=== PATIENT | female | born 1990 | race African-American/Black ===

== ENCOUNTER 2018-06-14 19:03 | Emergency (ER) | payer SELFPAY ==
[~2018-06-14] VITALS: Ht 170.2 cm; Wt 63.5 kg
[2018-06-14] MEDS ORDERED: ACETAMINOPHEN 325 MG TAB ONE (19:24)
[2018-06-14] MEDS ORDERED: ACETAMINOPHEN 325 MG TAB PO ONE (19:30)
[2018-06-14 19:56] LABS: CLARITY,URINE HAZY (CLEAR); COLOR,URINE YELLOW (YELLOW); LEUKOCYTE ESTERASE ,URINE NEGATIVE (NEGATIVE); NITRITE,URINE NEGATIVE (NEGATIVE)
[2018-06-14 19:57] LABS: BILIRUBIN,URINE 1+ (NEGATIVE); KETONES,URINE 2+ (NEGATIVE); PROTEIN,URINE DIPSTICK 2+ (NEGATIVE); URINE UROBILINOGEN 0.2 mg/dL (0.2 - 1)
[2018-06-14 19:58] LABS: PREGNANCY TEST, URINE NEGATIVE (NEGATIVE)
[2018-06-14 20:01] LABS: BACTERIA,URINE MODERATE /HPF; EPITHELIAL CELLS,URINE FEW /LPF; RBC,URINE 0-5 /HPF (0-5); WBC,URINE (MAN) 0-5 /HPF (0-5)
[2018-06-14 20:11] LABS: STREPTOCOCCUS GRP A ANTIGEN NEGATIVE (NEGATIVE)
--- NOTE | 2018-06-14 20:23 | Diagnostic Imaging Report ---
EXAMINATION: CHEST 2 VIEWS INDICATION: ^COUGH, FEVER SINCE FRIDAY, 104.0 F IN TRIAGE ^[id number] ^1956 ^Y COMPARISON: None FINDINGS: PA and lateral views TUBES and LINES: None. LUNGS: Lungs are well inflated. Mild bronchial wall thickening There is no evidence of pneumonia or pulmonary edema. PLEURA: No pleural effusion or pneumothorax. HEART AND MEDIASTINUM: The cardiomediastinal silhouette is unremarkable.. BONES AND SOFT TISSUES: Mild scoliosis of the midthoracic spine. Vertebral body heights are symmetric. No focal osseous lesions. Soft tissues are unremarkable. UPPER ABDOMEN: No free air under the diaphragm. IMPRESSION: Mild bronchial wall thickening suggestive of bronchitis. No infiltrates. Signed by: Dr. Sharad Cuellar MD on 06/14/2018 8:20 PM
[2018-06-14 20:36] LABS: INFLUENZAE A&B ANTIGEN (RAPID) NEGATIVE (NEGATIVE)
[2018-06-14 21:09] VITALS: BP 128/65
== END 2018-06-14 21:11 | disposition home or self-care (01) ==
LOC: ER 19:03
DX: R50.9 Fever, unspecified (principal); J20.9 Acute bronchitis, unspecified
CPT/HCPCS: 71046; 81001; 81025; 83518; 87070; 87400; 99283

== ENCOUNTER 2018-06-19 22:58 | Inpatient (IN) | payer SELFPAY ==
[~2018-06-19] VITALS: Ht 170.2 cm; Wt 75.9 kg
--- OUTSIDE RECORDS SUMMARY | 2018-06-19 23:02 | XMS REPORT ---
Author Author [facility] Address Unknown Phone Unavailable Care Team Providers Care Preparation Supervisor Freezing Name Role Phone Laurita MARLOW Unavailable Unavailable Problems This patient has no known problems. Allergies, Adverse Reactions, Alerts This patient has no known allergies or adverse reactions. Medications This patient has no known medications. Results Test Description Test Time Test Comments Text Results Atomic Results Result Comments CHEST 2 VIEWS 2018-06-14 20:19:00 [place] [address] Patient Name: CHAVA HODGE MR #: [id number] : 1990 Age/Sex: 27/F Req #: [id number] Adm Physician: Ordered by: DEAN HUBER MD Report #: [id number] Location: ER Room/Bed: Procedure: [id number] DX/CHEST 2 VIEWS Exam Date: 06/14/18 Exam Time: 1956 REPORT STATUS: Signed EXAMINATION: CHEST 2 VIEWS INDICATION: COUGH, FEVER SINCE FRIDAY, 104.0 F IN TRIAGE [id number] COMPARISON: None FINDINGS: PA and lateral views TUBES and LINES: None. LUNGS: Lungs are well inflated. Mild bronchial wall thickening There is no evidence of pneumonia or pulmonary edema. PLEURA: No pleural effusion or pneumothorax. HEART AND MEDIASTINUM: The cardiomediastinal silhouette is unremarkable.. BONES AND SOFT TISSUES: Mild scoliosis of the midthoracic spine. Vertebral body heights are symmetric. No focal osseous lesions. Soft tissues are unremarkable. UPPER ABDOMEN: No free air under the diaphragm. IMPRESSION: Mild bronchial wall thickening suggestive of bronchitis. No infiltrates. Signed by: Dr. Hemant Cuellar MD on 06/14/2018 8:20 PM Dictated By: HEMANT CUELLAR MD 19 Transcribed By: COURT on 06/14/182019 COPY TO: DEAN HUBER MD
[2018-06-20] VITALS (8 sets, daily range): BP systolic 112–139; BP diastolic 58–87
--- NOTE | 2018-06-20 00:15 | Diagnostic Imaging Report ---
EXAMINATION: Head CT without contrast. HISTORY:Possible new onset seizure. COMPARISON:None. TECHNIQUE: Multidetector axial images were obtained from the foramen magnum to the vertex without contrast. The images were reconstructed using brain and bone algorithms. Thin section brain images were reformatted into coronal and sagittal planes. Dose modulation, iterative reconstruction, and/or weight based adjustment of the mA/kV was utilized to reduce the radiation dose to as low as reasonably achievable. Intravenous contrast: None IMAGE QUALITY: Suboptimal evaluation due to motion-related streak artifacts. FINDINGS: Skull/scalp: No lytic or blastic. lesions. No surgical changes. Parenchyma: Suboptimal evaluation due to streak artifacts, despite the limitation no gross acute hemorrhage, mass or acute major vascular territorial infarct. Arteries: No density suggestive of thrombosis. Dural sinuses: No abnormal density suggestive of thrombosis. Ventricles: No hydrocephalus or displacement. Extra-axial spaces: No abnormal density. Brain volume: Normal for age. Craniocervical junction: No mass, Chiari malformation, or basilar invagination. Sella: No mass. Paranasal/mastoid sinuses: Imaged portions unremarkable. IMPRESSION: Suboptimal evaluation due to motion-related streak artifacts, despite the limitation no gross acute intracranial abnormality. Signed by: Dr. Caitlyn Pichardo M.D. on 06/20/2018 12:11 AM
--- NOTE | 2018-06-20 00:53 | Diagnostic Imaging Report ---
EXAMINATION: CHEST 2 VIEWS INDICATION: Cough. COMPARISON: None FINDINGS: TUBES and LINES: None. LUNGS: Lungs are well inflated. Mild perihilar, peribronchial thickening and perihilar streaky densities may reflect viral infection versus reactive airway disease. There is no evidence of pneumonia or pulmonary edema. PLEURA: No pleural effusion or pneumothorax. HEART AND MEDIASTINUM: The cardiomediastinal silhouette is unremarkable. BONES AND SOFT TISSUES: No acute osseous lesion. Mild scoliosis of the thoracic spine. UPPER ABDOMEN: No free air under the diaphragm. IMPRESSION: Mild perihilar, peribronchial thickening and perihilar streaky densities may reflect viral infection versus reactive airway disease Signed by: Dr. Kusum Padilla M.D. on 06/20/2018 12:50 AM
[2018-06-20 01:18] LABS: BASOPHILS % 0.3 % (0.0-1.0); EOSINOPHILS # (AUTO) 0.1 (0.0-0.4); EOSINOPHILS % 1.2 % (0.0-6.0); HEMATOCRIT 37.5 % (34.2-44.1); HEMOGLOBIN 12.2 g/dL (12.0-16.0); LYMPHOCYTES # (AUTO) 1.2 (1.0-3.2); LYMPHOCYTES % 15.8 % (18.0-39.1); MEAN CORPUSCULAR HEMOGLOBIN 26.4 pg (28-32); MEAN CORPUSCULAR HGB CONC 32.5 g/dL (31-35); MEAN CORPUSCULAR VOLUME 81.2 fL (81-99); MONOCYTES # (AUTO) 0.9 (0.2-0.8); MONOCYTES % 12.1 % (4.4-11.3); NEUTROPHILS # (AUTO) 5.1 (2.1-6.9); NEUTROPHILS % 70.2 % (38.7-80.0); PLATELET COUNT 233 x10e3/uL (140-360); RED BLOOD COUNT 4.62 x10e6/uL (3.6-5.1); RED CELL DISTRIBUTION WIDTH 13.3 % (11.7-14.4)
[2018-06-20 01:22] LABS: AMPHETAMINES SCREEN,URINE NEGATIVE (NEGATIVE); BENZODIAZEPINES SCREEN,URINE NEGATIVE (NEGATIVE); BILIRUBIN,URINE NEGATIVE (NEGATIVE); CLARITY,URINE CLEAR (CLEAR); COLOR,URINE YELLOW (YELLOW); KETONES,URINE NEGATIVE (NEGATIVE); LEUKOCYTE ESTERASE ,URINE TRACE (NEGATIVE); NITRITE,URINE NEGATIVE (NEGATIVE); PHENCYCLIDINE SCREEN,URINE NEGATIVE (NEGATIVE); PROTEIN,URINE DIPSTICK 1+ (NEGATIVE); URINE UROBILINOGEN 0.2 mg/dL (0.2 - 1)
[2018-06-20 01:23] LABS: PREGNANCY TEST, URINE NEGATIVE (NEGATIVE)
[2018-06-20 01:27] LABS: AMORPHOUS SEDIMENT,URINE MODERATE (FEW); BACTERIA,URINE MODERATE /HPF; EPITHELIAL CELLS,URINE MODERATE /LPF
[2018-06-20 01:40] LABS: ALANINE AMINOTRANSFERASE 104 IU/L (0-55); ALBUMIN 3.5 g/dL (3.5-5.0); ALKALINE PHOSPHATASE 63 IU/L (40-150); ANION GAP 16.3 mmol/L (8-16); BLOOD UREA NITROGEN 9 mg/dL (7-26); BUN/CREATININE RATIO 12 (6-25); CALCIUM 9.2 mg/dL (8.4-10.2); CARBON DIOXIDE 21 mmol/L (22-29); CHLORIDE 105 mmol/L (98-107); CREATININE, SERUM 0.76 mg/dL (0.57-1.11); EST GLOMERULAR FILTRATION RATE > 60 ML/MIN (60-); GLUCOSE 103 mg/dL (74-118); POTASSIUM 3.3 mmol/L (3.5-5.1); SODIUM 139 mmol/L (136-145)
[2018-06-20] MEDS ORDERED: KCL 20MEQ/.9 SOD CHL 1,000 ML IV ONE (02:15)
[2018-06-20] MEDS: LORAZEPAM INJ 2 MG/ML VIAL IV PRN ×2 (03:09→15:30)
[2018-06-20] MEDS: SODIUM CHLORIDE FLUSH 10 ML SYR INJ PRN ×2 (03:09→16:10)
--- NOTE | 2018-06-20 03:25 | NUR ---
Received report from [facility] nurse. Call light within reach. Patient is asleep in bed. Friend/boyfriend at bedside. Patient came via stretcher.
--- NOTE | 2018-06-20 07:13 | NUR ---
Gave report to oncoming nurse. Patient in bed. Call light within reach.
--- NOTE | 2018-06-20 11:43 | Diagnostic Imaging Report ---
History: High fever, seizure. Comparison studies: CT head 06/19/2018 Technique: Sagittal T2; axial DWI, FLAIR, MPGR, T1, Coronal FLAIR. Intravenous contrast: None Findings: Motion artifact limits the evaluation in some sequences. Scalp: Normal in signal . No masses . Bone marrow: Normal in signal intensity. Extra-axial: No masses, no fluid collections. Brain sulci: FLAIR sulcal hyperintensity at the bilateral cerebral hemispheres. Ventricles: Normal in size . No hydrocephalus . Parenchyma: No abnormal signal intensities. No masses, hemorrhage, acute or chronic vascular insults. Suprasellar region: No abnormalities. Craniocervical junction: No abnormalities. Patent foramen magnum. No Chiari one malformation. Vessels: Normal flow-voids in the arteries and sinuses. IMPRESSION: 1. FLAIR sulcal hyperintensity at the bilateral cerebral hemispheres, this could be seen in meningeal processes (inflammatory or neoplastic), subarachnoid hemorrhage (ruled out on recent CT head) and oxygen therapy. Meningitis is a consideration, recommend correlation with CSF analysis. Signed by: DR Juan Carlos Saenz M.D. on 06/20/2018 11:40 AM
[2018-06-20] MEDS ORDERED: LIDOCAINE 1% 5ML-MPF INJ ONE (13:30)
--- NOTE | 2018-06-20 14:05 | NUR ---
Nutrition Screen Note RD Recommendation for Physician: Continue diet as ordered Plan of Care: RD following, monitoring for adequacy and tolerance Nutrition reason for involvement: Nutrition Risk Trigger - MST Primary Diagnose(s):Seizure Ht:67 in Wt:140lbs BMI: 21.9 kg/m2 IBW:135lbs RD Assessment:(06/20/18) Initial encounter with patient. Pt has had 1 episode of nausea/vomiting. Pt Bit her tongue during a seizure and it is her tongue is swollen and causes some difficulty eating. 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 Pt was eating lunch at time of visit. No wt changes. Current Diet: Regular diet Malnutrition Evaluation (06/20) The patient does not meet criteria for a specified degree of malnutrition at this time. Will re-evaluate at follow-up as appropriate. Diet Education Needs Assessment: Diet education not indicated. Diet Adequacy: Meeting calorie needs, Meeting protein needs, Meeting fluid needs Tolerance: Tolerating PO Nutrition Care Level: Ike Oh RD, LD, CNSC
--- NOTE | 2018-06-20 15:44 | NUR ---
H&P cc: new seizure HPI: 27yoF, PCP none, developed new seizure. All history from boyfriend at bedside: Pt brought to ER few days ago with fever as high as 104, treated with antiemetics, went home without antibiotics. Pt has been having mild headaches. Now while lying in bed watching TV together, pt's body tensed up, then her eyes rolled to back of head, pt became nonresponsive for several minutes, with shaking motion. Again in the hospital, pt had 2 more episodes. 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 Brain imaging negative; Continue keppra Recheck K ABx for UTI; f/u SCD dIspo:scd; f/u neuro eval and EEG; f/u LP Wan Bejarano MD, PhD.
[2018-06-20] MEDS ORDERED: SODIUM CHLORIDE 0.9% 250ML 0 ML ONE (15:57)
[2018-06-20] MEDS ORDERED: LEVETIRACETAM IV ONE (16:00)
[2018-06-20] MEDS ORDERED: SODIUM CHLORIDE 0.9% IV ONE (16:00)
[2018-06-20] MEDS ORDERED: ZIPRASIDONE 20 MG VIAL IM ONE (16:00)
[2018-06-20 16:07] LABS: APPEARANCE,CSF CLEAR (CLEAR); COLOR,CSF COLORLESS (COLORLESS); TUBE NUMBER 2
[2018-06-20 16:08] LABS: WHITE BLOOD CELL,CSF 5 cells/uL (0-5)
--- NOTE | 2018-06-20 17:40 | Operative Report ---
DATE OF PROCEDURE: 06/20/2018 SURGEON: Trudi Alicia MD PROCEDURE: Lumbar puncture. DATE: June 20, 2018. TIME: 1400. INDICATION: New onset seizure and meningeal enhancement on MRI of the brain without contrast. PROCEDURE IN DETAIL: Informed consent was obtained. A time-out was completed verifying correct patient, procedure, site, positioning, and special equipment if applicable. The patient was placed in a right lateral decubitus position and in a semi- position with help from the nursing staff. The area was cleansed and draped in a sterile fashion. 1% lidocaine without epinephrine was used to anesthetize the surrounding skin area. A 20-gauge 3.5 inch spinal needle was placed in the L4-L5 interspace. Clear cerebral spinal fluid was obtained and the opening pressure was noted to be approximately 22 cm. Four tubes were filled with approximately 8 mm of cerebral spinal fluid. The cerebrospinal fluid was sent for the usual tests. ESTIMATED BLOOD LOSS: Less than 1 mL. The patient tolerated the procedure well and there were no complications. Trudi Alicia MD CP/ESMER /[id number] MTDCon
--- NOTE | 2018-06-20 19:06 | Consultation ---
DATE OF CONSULTATION: 06/20/2018 Neurology Consult Note HISTORY OF PRESENT ILLNESS: Ms. Wyman is a 27-year-old right-hand dominant woman with no known significant past medical history, admitted to [facility] on the morning of June 20, 2018 with new onset seizure activity. The majority of the history is obtained from review of the electronic medical records as the patient has no memory of the events of the last night/early this morning. According to the electronic medical records, late in the evening on June 19, 2018 or early in the morning of June 20, 2018, the patient's boyfriend was awakened from sleep by the patient shaking. When Ms. Wyman boyfriend looked over at her, he saw the patient was having a generalized tonic-clonic seizure. There was reported tongue biting associated with generalized tonoclonic activity. The duration of this activity is unknown. Once Ms. Wyman stop seizing, her boyfriend placed her in the car and brought her to the emergency center at [facility] for further evaluation of her symptoms. Upon arrival in the emergency center, the patient was afebrile with a blood pressure of 118/68 mmHg and a pulse of 92 beats per minute. The patient's neurological examination was documented as being nonfocal. A CT of the brain without contrast was performed while the patient was in the emergency center. This study did not reveal evidence of recent large territorial ischemia, hemorrhage, mass, or mass effect. While in the emergency center, the patient experienced a 2nd brief generalized tonic-clonic seizure with urinary incontinence. Ms. Wyman was then admitted to [facility] under observation status for further evaluation and treatment of her symptoms. At present, the patient reports she is at her neurological baseline. Ms. Wyman does not endorse sleep deprivation, recent changes in medications, use of prescription or recreational stimulants, or recent sudden cessation of alcohol use. The patient does report having a fever within the past 2 weeks. Approximately 1 week ago, the patient experienced 3 to 4 days of intermittent fevers and chills. When she did take her temperature, it was found to be 104 degrees Fahrenheit. Ms. Wyman came to the emergency center at [facility] for evaluation. According to the patient, on diagnostic studies performed were normal/negative. Ms. Wyman was diagnosed with bronchitis and discharged to home without medication. The patient does not report headache, confusion, neck pain or stiffness, or photophobia. She does report an unintentional weight loss of 10 pounds, nausea and vomiting, decreased oral intake, dizziness which she cannot further describe, and joint pain (shoulders). The patient does not report a history of febrile or other seizures. There is no known family history of seizures. Ms. Wyman does not report a prior history of head injury or meningitis/encephalitis. REVIEW OF SYSTEMS: Fever, unintentional weight loss, nausea, vomiting, decreased oral intake, joint pain, seizures, and dizziness. Otherwise, a 12-point review of systems is negative. PAST MEDICAL HISTORY: None. PAST SURGICAL HISTORY: None. PAST HOSPITALIZATIONS: None. FAMILY MEDICAL HISTORY: Hypertension. There is no known family history of autoimmune disorders or cancer. SOCIAL HISTORY: Ms. Wyman is single. 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 The patient does report current tobacco use. She has smoked half pack of cigarettes per day for approximately two years. The patient does not report current or prior alcohol use. The patient does smoke marijuana on a weekly basis. Her last use was earlier this week. She has received her supply of marijuana from the same person for the past three years. She has never experienced an adverse reaction to smoking marijuana. Ms. Wyman does not believe marijuana is laced or tainted with another substance. HOME MEDICATIONS: None. ALLERGIES: NO KNOWN DRUG ALLERGIES. NO KNOWN FOOD ALLERGIES. NO KNOWN ALLERGIES TO LATEX. NO KNOWN ALLERGIES TO IODINE OR OTHER CONTRAST MATERIALS. PHYSICAL EXAMINATION: VITAL SIGNS: Height 67 inches, weight 140 pounds, BMI 21.9 kg/m2, blood pressure 124/80 mmHg, pulse 79 beats per minute, respiratory rate 18 breaths per minute, oxygen saturation 100% on room air. GENERAL: The patient is awake and alert, does not appear distressed. HEENT: Normocephalic, atraumatic. Pupils are equal, round, and reactive to light. Moist mucous membranes. NECK: Supple. No appreciable thyromegaly. No appreciable carotid bruits. CARDIOVASCULAR: S1, S2, regular rate and rhythm. No murmurs, rubs, or gallops. RESPIRATORY: Clear to auscultation bilaterally. No wheezes, rhonchi, or rales. EXTREMITIES: The skin is warm and dry. No clubbing, cyanosis, or edema. The posterior tibial and dorsalis pedis pulses are 2+ and symmetric. SKIN: No rashes or lesions. NEUROLOGIC: MEMORY/ATTENTION: The patient is awake and alert, oriented to person, place, time, and situation. CRANIAL NERVES: Cranial nerve I - not tested. Cranial nerve II, III, IV, and - pupils are equal and round, react briskly to light (4 mm to 2 mm). Extraocular movements intact. No nystagmus. Cranial nerve V - sensation to light touch and pinprick is intact in the bilateral V1 through V3 distributions. Strength of the temporalis and masseter muscles are within normal limits. Cranial nerve VII - the face is symmetric as are all facial movements. Strength is within normal limits. Cranial nerve VIII - hearing is diminished to finger rub bilaterally. Cranial nerve IX, X - the soft palate elevates equally and symmetrically. Cranial nerve XI - normal strength of the bilateral sternocleidomastoid and trapezius muscles. Cranial nerve 12 - the tongue protrudes midline and moves symmetrically from [id number]. STRENGTH: Bulk is normal. Strength is 5/5 in the bilateral deltoids, biceps, triceps, wrist flexors and extensors, finger flexors and extensors, intrinsic hand muscles, hip flexors, knee flexors and extensors, ankle dorsiflexion and plantar flexion, and intrinsic foot muscles. Tone is normal. DEEP TENDON REFLEXES: Deep tendon reflexes are 2+ and symmetric at the triceps, biceps, brachioradialis, patellas, and Achilles. Plantar responses are flexor bilaterally. SENSATION: Sensation is intact to light touch and pinprick in both arms and both legs. CEREBELLAR: Vggrmr-[id number]-oykckl and heel-cabrera movements are intact without dysmetria or other impairment. GAIT: Deferred. SPEECH: Spontaneous speech is normal without appreciable dysarthria or aphasia. Repetition is intact. INVOLUNTARY MOVEMENTS: None. PRONATOR DRIFT: None. LABORATORY DATA: A comprehensive metabolic panel is significant for potassium of 3.3, carbon dioxide of 21, anion gap of 16.3, AST of 81, and ALT of 104. The CBC with differential and platelets reveals a white blood cell count of 7.30 with 70.2% neutrophils, 15.8% lymphocytes, 12.1% monocytes, 1.2% eosinophils, and 0.3% basophils. The hemoglobin and hematocrit are 12.2 and 37.5, respectively. The platelet count is 233. A urinalysis was significant for 1+ protein, 1+ blood, trace leukocyte esterase, 6 to 10 red blood cells, 6 to 10 white blood cells, moderate urine epithelial cells, moderate amorphous sediment, and moderate urine bacteria. A urine test is negative. A urine drug screen is positive for cannabinoids. DIAGNOSTIC STUDIES: CT of the brain without contrast on 06/19/2018: On my review, there is no evidence of recent large territorial ischemia, hemorrhage, mass, or mass effect. Cerebral volumes appear appropriate for age. There are no findings suggestive of chronic small vessel ischemic disease. Of note, images are obscured by movement artifact. Chest x-ray on 06/19/2018: Mild perihilar, peribronchial thickening and perihilar streaky densities may reflect viral infection versus reactive airway disease. MRI of the brain without contrast on 06/20/2018: On my review, there is diffuse enhancement of the meninges. There is no recent or remote large territorial ischemia, hemorrhage, mass, or mass effect. Cerebral volumes are appropriate for age. There are no findings suspicious for chronic small-vessel ischemic disease. ASSESSMENT AND PLAN: Ms. Wyman is a 27-year-old right-hand dominant woman without significant past medical history, admitted to [facility] with new onset seizures. At present, the patient's neurological examination is nonfocal. The patient's laboratory data and other diagnostic studies have been reviewed and are documented above. A significant finding is diffuse enhancement of the meninges on MRI of the brain without contrast. The patient's medical history as well as the findings on the MRI of the brain without contrast are suspicious for autoimmune/inflammatory disorders versus malignancy versus meningitis. RECOMMENDATIONS: As follows: 1. Ms. Wyman is status post lumbar puncture. The following studies will be ordered on cerebrospinal fluid: Cell count with differential, glucose, protein, Gram stain and culture, HSV, West Nile virus, angiotensin-converting enzyme, AFB culture and smear, flow cytometry, and cytology. Due to a low suspicion for meningitis, treatment with antibacterial and antiviral medications will be held. 2. Additional serum studies will be ordered as follows: Rheumatoid factor, SIENNA panel, Sjogren's antibodies, erythrocyte sedimentation rate, C-reactive protein, protein and urine electrophoresis, and HIV. 3. An EEG has been ordered and is pending. The results will be reviewed tomorrow by myself. 4. Ms. Wyman will be treated with Keppra. She will receive a loading dose of 20 mg/kg intravenously once for seizure prophylaxis. 5. Defer treatment of the remaining medical comorbidities to the primary and other services following the patient. Thank you for this consultation. I will continue to follow the patient while she remains in the hospital. TIME SPENT: 70 minutes. Trudi Alicia MD CP/ESMER /[id number] MTDD
[2018-06-20 19:21] LABS: ERYTHROCYTE SEDIMENTATION RATE 9 mm/hr (0-20)
[2018-06-20 19:26] LABS: HIV 1&2 AB SCREEN NON-REACTIVE (NONREACTIVE)
[2018-06-20 20:10] LABS: LYMPHOCYTES,CSF 98 % (40-80); MONOCYTES,CSF 0 %; NEUTROPHILS,CSF 2 % (0-6)
--- NOTE | 2018-06-20 21:35 | NUR ---
Received a call from the lab regarding insufficient amount of CSF. Dr. Alicia notified.
--- NOTE | 2018-06-20 22:25 | NUR ---
ADDENDUM to H&P: A/P: 27yoF New-onset seizure Hypokalemia Acute transaminitis UTI Current smoker PLAN R/O meningitis- LP done. Brain imaging negative; Continue keppra Recheck K ABx for UTI; f/u SCD dIspo:scd; f/u neuro eval and EEG; f/u LP Wan Bejarano MD, PhD. ADDENDUM: LP shows markedly elevated lymphocytes, supportive of Viral Meningitis. Start: 1.Droplet precautions 2.Acyclovir q8 for 21 days.
[2018-06-20] MEDS ORDERED: ACYCLOVIR SODIUM 700 MG in SODIUM CHLORIDE 0.9% 250ML 250 ML IV SCH (22:30)
[2018-06-20] MEDS ORDERED: SODIUM CHLORIDE 0.9% 250ML 250 ML ONE ×2 (23:03→23:54)
[2018-06-21] VITALS (7 sets, daily range): BP systolic 106–159; BP diastolic 60–81
[2018-06-21] MEDS ORDERED: SODIUM CHLORIDE 0.9% IV SCH ×3 (06:00→14:00)
[2018-06-21] MEDS ORDERED: ACYCLOVIR SODIUM IV SCH ×3 (06:00→14:00)
[2018-06-21 06:16] LABS: ALANINE AMINOTRANSFERASE 88 IU/L (0-55); ALBUMIN 3.2 g/dL (3.5-5.0); ALKALINE PHOSPHATASE 60 IU/L (40-150); ANION GAP 11.1 mmol/L (8-16); BLOOD UREA NITROGEN 6 mg/dL (7-26); BUN/CREATININE RATIO 9 (6-25); CALCIUM 8.7 mg/dL (8.4-10.2); CARBON DIOXIDE 24 mmol/L (22-29); CHLORIDE 107 mmol/L (98-107); EST GLOMERULAR FILTRATION RATE > 60 ML/MIN (60-); GLUCOSE 90 mg/dL (74-118); POTASSIUM 3.1 mmol/L (3.5-5.1); SODIUM 139 mmol/L (136-145)
--- NOTE | 2018-06-21 06:35 | NUR ---
Patient laying in bed with HOB slightly elevated. AAO x 2-3. Patient denies of any pain at this time. No sob noted. No acute distress noted. Boyfriend at bedside. Received a call from Dr. Bejarano regarding new order of droplet isolation, IV acyclovir, and ID consult to rule out viral meningitis. Patient in stable condition and will continue to monitor.
[2018-06-21 06:37] LABS: BASOPHILS % 0.2 % (0.0-1.0); EOSINOPHILS # (AUTO) 0.1 (0.0-0.4); EOSINOPHILS % 0.7 % (0.0-6.0); HEMATOCRIT 34.1 % (34.2-44.1); HEMOGLOBIN 11.3 g/dL (12.0-16.0); LYMPHOCYTES # (AUTO) 1.7 (1.0-3.2); LYMPHOCYTES % 18.9 % (18.0-39.1); MEAN CORPUSCULAR HEMOGLOBIN 26.8 pg (28-32); MEAN CORPUSCULAR HGB CONC 33.1 g/dL (31-35); MONOCYTES # (AUTO) 1.2 (0.2-0.8); MONOCYTES % 13.3 % (4.4-11.3); NEUTROPHILS % 66.5 % (38.7-80.0); PLATELET COUNT 271 x10e3/uL (140-360); RED BLOOD COUNT 4.21 x10e6/uL (3.6-5.1); RED CELL DISTRIBUTION WIDTH 13.5 % (11.7-14.4)
[2018-06-21] MEDS: ENOXAPARIN SOD INJ 40 MG/0.4 ML SYR SC SCH (16:30)
[2018-06-21] MEDS: FAMOTIDINE 20 MG TAB PO SCH (16:30)
[2018-06-21] MEDS: ACETAMINOPHEN 325 MG TAB PO PRN (16:30)
[2018-06-21] MEDS: LEVETIRACETAM 500 MG TAB PO SCH (16:30)
--- NOTE | 2018-06-21 17:31 | NUR ---
IM- Progress note O/N; no events ROS: unobtainable v/s; revd PE awake anicteric ns1s2 mod bs soft nt nd no e/t awake; cognitive slowing; minimally vocal; judd skin dry flat affect labs/meds; revd A/P: 27yoF New-onset seizure Hypokalemia Acute transaminitis UTI Current smoker PLAN LP shows markedly elevated lymphocytes, supportive of Viral Meningitis- droplet precautions and acyclovir R/O meningitis- LP done. Brain imaging negative; Continue keppra Recheck K ABx for UTI; f/u SCD dIspo:scd; f/u neuro eval and EEG; f/u LP 06/21 f/u labs; MRI supportive. f/u recs. Wan Bejarano MD, PhD.
[2018-06-21] MEDS ORDERED: POTASSIUM CHLORIDE 20 MEQ TAB CR PO ONE (18:30)
[2018-06-21] MEDS: ACYCLOVIR SODIUM IV SCH (20:40)
[2018-06-21] MEDS: SODIUM CHLORIDE 0.9% IV SCH (20:40)
--- NOTE | 2018-06-21 20:40 | Consultation ---
DATE OF CONSULTATION: 06/21/2018 REASON FOR CONSULTATION: Evaluate the patient with suspected meningitis. Information is gathered from current medical record. I interviewed the patient at bedside. HISTORY OF PRESENT ILLNESS: She is a 27-year-old woman, who has had a febrile illness/symptoms for about 2 weeks. The patient reports that she first developed fevers before Friday, a week ago. She had no headache or neck stiffness at that time. She has had an infrequent cough that is nonproductive. She had no sore throat. She started taking ibuprofen for her fever, she was taking 800 in the morning and 800 in the evening. Subsequently, she developed headaches. The fever persisted, she also developed some. I asked as to whether the headache was most severe she has ever had in her life, she said no. The fever persisted. She also developed some pain in her neck, but not acute or rigid stiffness. On the day she came to the hospital, she said that she was sleeping and she heard her boyfriend say that she was having seizures and advised her to come to the emergency room for evaluation. Prior to that, the patient reports that she had come to this hospital where she was seen and apparently advised to interchange Tylenol with ibuprofen for her fevers. Again, she had no significant respiratory, gastrointestinal, or genitourinary complaints. No pruritus or rash. PAST MEDICAL HISTORY: She has not travelled outside of [place] or [facility] recently. She has two pet pit bulls at home, they are fully vaccinated according to her. She lives with her boyfriend, who does not have similar symptoms as she has. She has no history of diabetes, hypertension, cardiac, renal, or liver disease. SOCIAL HISTORY: She smokes cigarettes and occasionally marijuana. She denies alcohol and other forms of recreational drug use. FAMILY HISTORY: Noncontributory to her current hospitalization. ALLERGIES: SHE HAS NO KNOWN ALLERGIES. MEDICATIONS: At the time of this evaluation, she in on treatment with acyclovir. The rest of all medications are present in medication administration report. REVIEW OF SYSTEMS: The patient is alert. Her sensorium is clear. She currently has no headache or neck stiffness. No sore throat. No visual or auditory complaints. No chest or abdominal pain. No nausea, vomiting, or diarrhea. No frequency or dysuria. No pruritus or rash. She reports that she has eczema that affects the back of her elbows. PHYSICAL EXAMINATION: GENERAL: She is a young woman. She is alert, responsive, coherent. She appears nontoxic and is in no acute distress. VITAL SIGNS: In the past 24 hours, she has had temperatures up to 100.3 degrees Fahrenheit, her most recent temperature 97.9. She is hemodynamically stable. HEENT: She has no pallor. There is no icterus. No oropharyngeal lesions. NECK: Supple. CHEST: Symmetric. LUNGS: Clear. HEART: Sounds are regular without a significant murmur. ABDOMEN: Soft and nontender with normal bowel sounds. EXTREMITIES: There is no acute erythema of her extremities. There is no palpable adenopathy. There is scaling rash at the back of her elbows, suggestive of psoriasis. LABORATORY DATA: Her white count on June 20 was 7.3, currently 8.9. Hemoglobin 11.3, platelet count 271. Differentials on white count shows about 13% monocytes, 18% lymphocytes, 66% neutrophils on an automated differential. Her liver function tests on June 20 showed AST 81 down to 56 currently, ALT 104 down to 88 currently. The rest of the liver function tests appear unremarkable. Her serum creatinine is 0.7. Urine drug screen on June 19 was positive for cannabinoids. HIV test on June 20 was negative. PCR for HSV-1 and 2 are pending. MRI of the brain on June 20 is reported with flair sulcal hyperintensity at the bilateral cerebral hemispheres. Differential diagnosis cited in the report includes inflammatory or neoplastic conditions, meningitis being a consideration. A CT of the brain showed no acute abnormality. Chest x-ray reports mild perihilar, peribronchial thickening, and perihilar streaking densities that may reflect viral infection versus reactive airway disease. IMPRESSION: This 27-year-old woman presented to the hospital with complaints that she has had temperatures up to 104.1 degrees Fahrenheit at home. She has had febrile symptoms for about a week before presentation apparently. She had been taking up to 1600 mg of ibuprofen a day for the fevers. She subsequently developed headache and some neck pain. Her CSF shows only 5 wbc, 98% of which are lymphocytes. This picture is not consistent with an acute infection. Her MRI however is somewhat abnormal. She has had CSF sent for HSV PCR. I will suggest we keep her on acyclovir until the CSF PCR for HSV report is available. Of note, the patient has no history of herpes infection, not a genital nor labial infection. I am suspecting aseptic meningitis associated with ibuprofen use in this patient who had probably a viral syndrome. I have discussed the findings and plan with the patient at bedside along with nursing care of the patient. I will discuss the patient with her primary physician, whom I thank for the consult and the opportunity to participate in the patient's care. MD SWATI Hernandez/MODL /[id number]
--- NOTE | 2018-06-21 21:45 | NUR ---
right forearm IV leaking. D/C IV. Start new IV to left forearm 22g. Patient tolerated well
[2018-06-22] VITALS (9 sets, daily range): BP systolic 119–162; BP diastolic 75–95
[2018-06-22] MEDS: ACYCLOVIR SODIUM IV SCH ×3 (03:28→20:04)
[2018-06-22] MEDS: SODIUM CHLORIDE 0.9% IV SCH ×3 (03:28→20:04)
[2018-06-22 06:32] LABS: HEMATOCRIT 35.2 % (34.2-44.1); HEMOGLOBIN 11.5 g/dL (12.0-16.0); MEAN CORPUSCULAR HEMOGLOBIN 26.6 pg (28-32); MEAN CORPUSCULAR HGB CONC 32.7 g/dL (31-35); MEAN CORPUSCULAR VOLUME 81.5 fL (81-99); PLATELET COUNT 352 x10e3/uL (140-360); RED BLOOD COUNT 4.32 x10e6/uL (3.6-5.1); RED CELL DISTRIBUTION WIDTH 13.2 % (11.7-14.4)
[2018-06-22 07:02] LABS: ALBUMIN 3.5 g/dL (3.5-5.0); BILIRUBIN,DIRECT 0.2 mg/dL (0.0-0.5)
[2018-06-22 07:33] LABS: LYMPHOCYTES % (MANUAL) 3 % (19-48); MONOCYTES % (MANUAL) 6 % (3.4-9.0); NEUTROPHILS % (MANUAL) 91 % (40-74); PLATELET ESTIMATE ADEQUATE; PLATELET MORPHOLOGY COMMENT NORMAL
[2018-06-22 07:34] LABS: ANISOCYTOSIS MODERATE; HOWELL-JOLLY BODIES FEW; HYPOCHROMASIA SLIGHT; RBC MORPHOLOGY COMMENT ABNORMAL
[2018-06-22] MEDS ORDERED: POTASSIUM CHLORIDE 20 MEQ TAB CR PO ONE (07:58)
--- NOTE | 2018-06-22 08:03 | NUR ---
IM- Progress note O/N; no events ROS: unobtainable v/s; revd PE awake anicteric ns1s2 mod bs soft nt nd no e/t awake; cognitive slowing; minimally vocal; judd skin dry flat affect labs/meds; revd A/P: 27yoF New-onset seizure Hypokalemia Acute transaminitis UTI Current smoker PLAN LP shows markedly elevated lymphocytes, supportive of Aseptic Meningitis- droplet precautions and acyclovir R/O meningitis- LP done. Brain imaging negative; Continue keppra Recheck K ABx for UTI; f/u SCD dIspo:scd; f/u neuro eval and EEG; f/u LP 06/21 f/u labs; MRI supportive. f/u recs. 06/22 doing much better Wan Bejarano MD, PhD.
[2018-06-22] MEDS: FAMOTIDINE 20 MG TAB PO SCH ×2 (08:15→17:25)
[2018-06-22] MEDS: LEVETIRACETAM 500 MG TAB PO SCH ×2 (08:15→17:25)
[2018-06-22] MEDS: ACETAMINOPHEN 325 MG TAB PO PRN ×2 (08:15→19:29)
[2018-06-22 12:17] LABS: INR 0.99; PROTHROMBIN TIME 13.6 seconds (11.9-14.5)
[2018-06-22] MEDS: ENOXAPARIN SOD INJ 40 MG/0.4 ML SYR SC SCH (17:25)
[2018-06-23] VITALS (9 sets, daily range): BP systolic 126–183; BP diastolic 59–110
[2018-06-23] MEDS: SODIUM CHLORIDE 0.9% IV SCH ×3 (03:13→20:30)
[2018-06-23] MEDS: ACYCLOVIR SODIUM IV SCH ×3 (03:13→20:30)
--- NOTE | 2018-06-23 07:22 | NUR ---
Rcvd patient in report this am. Patient is asleep in bed at this time. No s/s of distress noted
[2018-06-23] MEDS: FAMOTIDINE 20 MG TAB PO SCH ×2 (07:30→16:30)
[2018-06-23] MEDS ORDERED: ACETAMINOPHEN 1000 MG/100 ML IV STA (08:07)
--- NOTE | 2018-06-23 08:09 | NUR ---
IM- Progress note O/N; no events ROS: unobtainable v/s; revd PE awake anicteric ns1s2 mod bs soft nt nd no e/t awake; cognitive slowing; minimally vocal; judd skin dry flat affect labs/meds; revd A/P: 27yoF New-onset seizure Hypokalemia Acute transaminitis UTI Current smoker PLAN LP shows markedly elevated lymphocytes, supportive of Aseptic Meningitis- droplet precautions and acyclovir R/O meningitis- LP done. Brain imaging negative; Continue keppra Recheck K ABx for UTI; f/u SCD dIspo:scd; f/u neuro eval and EEG; f/u LP 06/21 f/u labs; MRI supportive. f/u recs. 06/22 doing much better 06/23 check K and LFTs. f/u studies; Headache effectively treated with fioricet. Wan Bejarano MD, PhD.
[2018-06-23] MEDS ORDERED: ACETAMINOPHEN 1000 MG/100 ML IV PRN (08:15)
[2018-06-23] MEDS: ENOXAPARIN SOD INJ 40 MG/0.4 ML SYR SC SCH (08:46)
--- NOTE | 2018-06-23 08:48 | NUR ---
OR called and said that they had to postpone the blood patch today due to patient having lovenox. Dr. ceja and dr. yin informed
[2018-06-23] MEDS: LEVETIRACETAM 500 MG TAB PO SCH ×2 (09:13→17:11)
[2018-06-23] MEDS: ACETAMINOPHEN 325 MG TAB PO PRN ×2 (09:13→20:56)
--- NOTE | 2018-06-23 09:13 | NUR ---
Patient continues to c/o headache. IV tylenol completed. Oral tylenol given as well. Call Placed to MD for further orders. IV to left AC leaking. Will attempt to start a new one
[2018-06-23 09:37] LABS: ALBUMIN 3.4 g/dL (3.5-5.0); BILIRUBIN,DIRECT 0.3 mg/dL (0.0-0.5); POTASSIUM 3.8 mmol/L (3.5-5.1)
--- NOTE | 2018-06-23 10:09 | NUR ---
Spoke with Dr. Bejarano and received new order for prn nausea meds and medications for her headache.
[2018-06-23] MEDS: ACETAMIN/BUTALBITAL/CAFFEINE TAB PO PRN ×2 (10:24→19:06)
[2018-06-23] MEDS: PROMETHAZINE 12.5MG/ NACL 0.9% 12.5 MG/50 ML BAG IV PRN (10:24)
--- NOTE | 2018-06-23 10:28 | NUR ---
Patient is AAOx3. Lung vazquez clear to auscultation. Bowel sounds present x4. No edema noted. Patient ambulates with assist. Patient needs assistance to ambulate d/t headache.
--- NOTE | 2018-06-23 10:28 | NUR ---
New iv started. 22G to the right AC area
--- NOTE | 2018-06-23 10:54 | NUR ---
SOCIAL WORK INITIAL ASSESSMENT [place] Planning Manager to bedside to discuss plan of care with patient/family. CM/SW role and care transitions discussed. Anticipated discharge plan discussed along with duration of care. CM/SW discussed patients right to make decisions in care. CM/SW work hours given. 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 Name and number was also written on the patients whiteboard. Patient verbalized understanding of discussion. CM will follow-up with ongoing discharge and transition of care needs.
--- NOTE | 2018-06-23 11:25 | NUR ---
IV in right AC is causing pain to site. Flushed and patient grimaced. Will attempt to start a new one
--- NOTE | 2018-06-23 11:50 | NUR ---
Report called to AVRIL Blakely. patient to transfer to [facility]
--- NOTE | 2018-06-23 12:00 | NUR ---
Blood pressure noted to be high at 160/106. Rechecked manually and noted at 160/80. Call placed to MD for orders
--- NOTE | 2018-06-23 12:15 | NUR ---
PATIENT RECEIVED FROM OBS BY STRETCHER. ALERT AND VERBALLY RESPONSIVE, STATED THAT SHE IS FEELING BETTER. SITTING UP IN BED EATING LUNCH, NO DIFFICULTY SWALLOWING OBSERVED. ALL PERSONAL ITEMS CLOSE TO PATIENT. IV MEDICATION INFUSING ORDERED. ALL SIDES OF BED PADDED FOR SEIZURE PRECAUTION. BED IN LOWER POSITION, CALL LIGHT AT REACH.
--- NOTE | 2018-06-23 16:24 | Progress Note ---
DATE: 06/22/2018 SUBJECTIVE: The patient is fairly stable. She is in no acute distress. She is not coughing currently. No dyspnea at rest. No vomiting. No diarrhea. No overt medication reaction reported. OBJECTIVE: VITAL SIGNS: In the previous 24 hours, she had temperatures up to 101.1 degrees Fahrenheit. GENERAL: She is hemodynamically stable. HEENT: She has no gross pallor. No obvious icterus. No oropharyngeal lesions. NECK: Supple. CHEST: Symmetric. LUNGS: Clear. HEART: Sounds are regular without a new murmur. ABDOMEN: Soft. Bowel sounds are normal. EXTREMITIES: There is no acute erythema of extremities. LABORATORY DATA: White count is 10.5, hemoglobin 11.5, and platelet count 352. Differential on white count show 91% neutrophils. 0.7. There are no significant positive cultures. IMPRESSION: We have her empirically on acyclovir for meningitis. HSV 1 and 2 PCR ordered, report is pending. MRI is abnormal. The patient has had seizures. I suggest continue acyclovir until HSV PCR report is available. MD SWATI Hernandez/MODL /[id number]
--- NOTE | 2018-06-23 16:45 | Progress Note ---
DATE: 06/23/2018 SUBJECTIVE: The patient is alert and responsive. She reports that she has headaches when she sits up. No nausea, vomiting, or diarrhea. No seizure reported in the past 24-48 hours. No other systemic complaints reported. OBJECTIVE: VITAL SIGNS: Maximum temperature in the past 24 hours was up to 98.3 degrees Fahrenheit. GENERAL: She is hemodynamically stable. HEENT: She has no gross pallor. No obvious icterus. No oropharyngeal lesions. NECK: Supple. CHEST: Symmetric. LUNGS: Clear. HEART: Sounds are regular without a new murmur. ABDOMEN: Soft. Bowel sounds are present. EXTREMITIES: There is no acute erythema of extremities. LABORATORY DATA: Her creatinine is 0.7 on June 21. On June 22, her AST was down to 34 and ALT was down to 62. Her white count is 10.5 hemoglobin 11.5, platelet count 352. There are no significant positive cultures. HSV 1 and 2 PCR on the CSF report is still not available. IMPRESSION: She is on empiric coverage for aseptic meningitis. She has had seizures. MRI of her brain is abnormal. Serologies for HSV 1 and 2 PCR report is still not available. I suggest continue acyclovir. If the HSV 1 and 2 PCR is negative, discontinue acyclovir. The patient could be discharged at that point for outpatient followup. MD SWATI Hernandez/ESMER /[id number]
--- NOTE | 2018-06-23 18:57 | NUR ---
patient received awake, alert, lying quietly in bed. no c/o pain noted. patient remains on seizure precautions and droplet isolation per orders. pm assessment complete. patient instructed to call for assistance when needed.
--- NOTE | 2018-06-23 19:06 | NUR ---
patient called for pain medication for c/o headache. patient oob by self standing at the door. patient begins to shake. patient easily assisted to floor. patient awake, alert at this time. patient able to get up off the floor with minimal assistance. patient assisted back to bed. side rails remain up x 4 and padded d/t sz precautions. patient instructed to call for assistance when needed. patient verbalizes understanding of this. patient medicated with fioricet 1 tab po for c/o headache at this time.
[2018-06-23] MEDS ORDERED: SODIUM CHLORIDE 0.9% 250ML 250 ML ONE (19:22)
--- NOTE | 2018-06-23 19:30 | NUR ---
iv right hand out. another iv to be placed. patient sitting up in bed talking on the phone.
--- NOTE | 2018-06-23 20:30 | NUR ---
right ej [facility]18 [facility].
[2018-06-23] MEDS: LABETALOL HCL 5 MG/ML 20ML VIAL IV PRN (20:45)
--- NOTE | 2018-06-23 20:45 | NUR ---
patient medicated with labetalol 5 mg ivp for bp 183/110 at this time.
--- NOTE | 2018-06-23 20:56 | NUR ---
patient medicated with tylenol 650 mg po for temp 101.6 at this time.
[2018-06-23 23:56] LABS: ANGIOTENSIN CONVERTING ENZYME 45 U/L (14-82)
[2018-06-24] VITALS (7 sets, daily range): BP systolic 154–190; BP diastolic 83–121
--- NOTE | 2018-06-24 | NUR ---
bp 155/86 hr 60 no further c/o pain noted. family remains at the bedside.
[2018-06-24] MEDS: SODIUM CHLORIDE 0.9% IV SCH ×3 (03:15→19:50)
[2018-06-24] MEDS: ACYCLOVIR SODIUM IV SCH ×3 (03:15→19:50)
[2018-06-24] MEDS: ACETAMIN/BUTALBITAL/CAFFEINE TAB PO PRN ×3 (04:06→19:50)
--- NOTE | 2018-06-24 04:06 | NUR ---
patient medicated with fioricet 1 tab po for c/o headache 07/03 at this time.
[2018-06-24] MEDS: LORAZEPAM INJ 2 MG/ML VIAL IV PRN ×2 (04:27→07:55)
[2018-06-24] MEDS: LABETALOL HCL 5 MG/ML 20ML VIAL IV PRN (04:27)
--- NOTE | 2018-06-24 04:27 | NUR ---
patient medicated with labetalol 5 mg ivp for bp 176/121 at this time.
--- NOTE | 2018-06-24 06:30 | NUR ---
manual bp 176/78 hr 91 at this time.
--- NOTE | 2018-06-24 07:45 | NUR ---
PT UP IN BED CRING ,YELLING ABOUT HEADACHE ,EXPLAINED NEEDS TO CALM DOWN,SPOKE WITH DR VACA ORDERS WRITTEN.
--- NOTE | 2018-06-24 07:58 | NUR ---
PT MEDICATED FOR ANXIETY,BED ALARM IN PLACE,INFORMED PT NOT TO GET OUT OF BED WITHOUT ASSISTANCE.
[2018-06-24] MEDS ORDERED: LORAZEPAM INJ 2 MG/ML VIAL IV ONE (08:00)
--- NOTE | 2018-06-24 08:01 | NUR ---
IM- Progress note O/N; no events ROS: unobtainable v/s; revd PE awake anicteric ns1s2 mod bs soft nt nd no e/t awake; cognitive slowing; minimally vocal; judd skin dry flat affect labs/meds; revd A/P: 27yoF New-onset seizure Hypokalemia Acute transaminitis UTI Current smoker PLAN LP shows markedly elevated lymphocytes, supportive of Aseptic Meningitis- droplet precautions and acyclovir R/O meningitis- LP done. Brain imaging negative; Continue keppra Recheck K ABx for UTI; f/u SCD dIspo:scd; f/u neuro eval and EEG; f/u LP 06/21 f/u labs; MRI supportive. f/u recs. 06/22 doing much better 06/23 check K and LFTs. f/u studies; Headache effectively treated with fioricet. 06/24 fevers- check labs; control BP f/u HSV testing Wan Bejarano MD, PhD.
[2018-06-24] MEDS: METOPROLOL TARTRATE 50 MG TAB PO SCH ×3 (08:15→21:17)
[2018-06-24] MEDS: FAMOTIDINE 20 MG TAB PO SCH ×2 (08:45→17:00)
[2018-06-24] MEDS: LEVETIRACETAM 500 MG TAB PO SCH ×2 (08:45→17:00)
[2018-06-24 10:07] LABS: BASOPHILS % 0.4 % (0.0-1.0); EOSINOPHILS # (AUTO) 0.1 (0.0-0.4); EOSINOPHILS % 0.7 % (0.0-6.0); HEMATOCRIT 32.8 % (34.2-44.1); HEMOGLOBIN 10.7 g/dL (12.0-16.0); LYMPHOCYTES # (AUTO) 1.5 (1.0-3.2); LYMPHOCYTES % 20.7 % (18.0-39.1); MEAN CORPUSCULAR HEMOGLOBIN 26.3 pg (28-32); MEAN CORPUSCULAR HGB CONC 32.6 g/dL (31-35); MEAN CORPUSCULAR VOLUME 80.6 fL (81-99); MONOCYTES # (AUTO) 0.9 (0.2-0.8); MONOCYTES % 11.8 % (4.4-11.3); NEUTROPHILS # (AUTO) 4.9 (2.1-6.9); NEUTROPHILS % 65.9 % (38.7-80.0); PLATELET COUNT 420 x10e3/uL (140-360); RED BLOOD COUNT 4.07 x10e6/uL (3.6-5.1); RED CELL DISTRIBUTION WIDTH 13.3 % (11.7-14.4)
[2018-06-24 10:25] LABS: ANION GAP 14.4 mmol/L (8-16); BLOOD UREA NITROGEN 7 mg/dL (7-26); BUN/CREATININE RATIO 9 (6-25); CALCIUM 9.5 mg/dL (8.4-10.2); CARBON DIOXIDE 25 mmol/L (22-29); CHLORIDE 103 mmol/L (98-107); CREATININE, SERUM 0.81 mg/dL (0.57-1.11); EST GLOMERULAR FILTRATION RATE > 60 ML/MIN (60-); GLUCOSE 79 mg/dL (74-118); POTASSIUM 3.4 mmol/L (3.5-5.1); SODIUM 139 mmol/L (136-145)
--- NOTE | 2018-06-24 12:18 | NUR ---
PT UP IN ROOM ASSISTED PT BACK TO BED AND INSTRUCTED HER NOT TO GET OUT OF BED.DUE TO HAVING HEADACHE
--- NOTE | 2018-06-24 12:57 | NUR ---
Wound Care PUP Screen Kevin Score 19 Conservative Pup Active LOS4 days Age27 [address] In [address] Pump Setting - N/A Heel Protectors: N/A Patient Sitting in bed. OOB with Supervision- Seizure Precautions. RECOMMENDATION: Continue Conservative PUP Addendum: 06/24/18 at 1300 by Tr Morejon RN Amended: Links added.
[2018-06-24] MEDS: PROMETHAZINE 12.5MG/ NACL 0.9% 12.5 MG/50 ML BAG IV PRN (16:30)
--- NOTE | 2018-06-24 16:30 | NUR ---
PT C/O NAUSEA AND DRY HEAVES-MEDICATED
[2018-06-24] MEDS: ENOXAPARIN SOD INJ 40 MG/0.4 ML SYR SC SCH (17:00)
--- NOTE | 2018-06-24 17:40 | NUR ---
CODE BUTTON PUSHED ,PT UP IN BED UNRESPONSIVE,TECH STATED PT SAT UP AND JUST FELL OVER IN BED, PULSE NOTED ,DID CHEST RUB PT OPENED EYES AND RESPONDED TO STAFF,BP ELEVATED,O2 SATS 99% RA,DR VACA HERE NO FUTHER ORDERS
--- NOTE | 2018-06-24 18:19 | NUR ---
PT IN BED SLEEPING ,NO DISTRESS NOTED,NO C/O HEADACHE
--- NOTE | 2018-06-24 19:25 | NUR ---
Received patient asleep on bed, not in distress, padded side rails, bed alarm on, bed in low position and locked. Call light within easy reach, will closely monitor
--- NOTE | 2018-06-24 19:50 | NUR ---
Assisted patient to the bathroom
[2018-06-25] VITALS (7 sets, daily range): BP systolic 123–169; BP diastolic 60–91
[2018-06-25] MEDS: ACYCLOVIR SODIUM IV SCH ×3 (03:24→19:30)
[2018-06-25] MEDS: SODIUM CHLORIDE 0.9% IV SCH ×3 (03:24→19:30)
[2018-06-25] MEDS: ACETAMIN/BUTALBITAL/CAFFEINE TAB PO PRN ×2 (04:00→20:50)
[2018-06-25] MEDS: ONDANSETRON HCL INJ 2MG/ML 2ML 2 MG/ML VIAL IV PRN ×2 (04:00→19:22)
--- NOTE | 2018-06-25 04:00 | NUR ---
patient c/o nausea, and started shaking, patient is alert , answers questions correctly. PRN medications given.
[2018-06-25] MEDS: LORAZEPAM INJ 2 MG/ML VIAL IV PRN ×2 (04:16→13:51)
[2018-06-25] MEDS: METOPROLOL TARTRATE 50 MG TAB PO SCH ×3 (05:30→20:50)
--- NOTE | 2018-06-25 06:00 | NUR ---
Patient asleep, not in distress.
--- NOTE | 2018-06-25 06:03 | NUR ---
IM- Progress note O/N; no events ROS: unobtainable v/s; revd PE awake anicteric ns1s2 mod bs soft nt nd no e/t awake; cognitive slowing; minimally vocal; judd skin dry flat affect labs/meds; revd A/P: 27yoF New-onset seizure Hypokalemia Acute transaminitis UTI Current smoker PLAN LP shows markedly elevated lymphocytes, supportive of Aseptic Meningitis- droplet precautions and acyclovir R/O meningitis- LP done. Brain imaging negative; Continue keppra Recheck K ABx for UTI; f/u SCD dIspo:scd; f/u neuro eval and EEG; f/u LP 06/21 f/u labs; MRI supportive. f/u recs. 06/22 doing much better 06/23 check K and LFTs. f/u studies; Headache effectively treated with fioricet. 06/24 fevers- check labs; control BP f/u HSV testing 06/25 check K Wan Bejarano MD, PhD.
--- NOTE | 2018-06-25 07:30 | NUR ---
PT UP IN BED CRYING,ANXIOUS,C/O CHEST PAIN ,EKG ORDERED,
--- NOTE | 2018-06-25 08:00 | NUR ---
EKG NORMAL,PT CALMER NOW NO C/O CHEST PAIN
[2018-06-25] MEDS: FAMOTIDINE 20 MG TAB PO SCH ×2 (08:15→16:30)
[2018-06-25] MEDS: LEVETIRACETAM 500 MG TAB PO SCH ×2 (08:15→17:00)
--- NOTE | 2018-06-25 12:45 | NUR ---
CALLED TO PT ROOM ,PT BREATHING VERY FAST EXPLAINED TO PT TO CALM DOWN AND BREATH SLOWLY.PT GRADUALLY SLOWED BREATHING DOWN AND RELAXED.
--- NOTE | 2018-06-25 12:49 | Electroencephalogram ---
DATE OF STUDY: 06/20/2018 REQUESTING PHYSICIAN: Trudi Alicia MD HISTORY: This 27-year-old woman with history of multiple recent seizures is having an EEG for evaluation of epileptiform activity. The patient is taking the following medications which may affect the EEG: Keppra, Ativan. TECHNIQUE: This is a routine, portable EEG, recorded digitally, using the International 10/20 electrode placement system, and done in the inpatient setting with the patient awake. The EEG is technically limited because of muscle artifact. DESCRIPTION: Well-organized, well-sustained 5-6 Hz activity is best seen symmetrically over the posterior head regions. 13-14 Hz activity is intermixed and probably due to medication effect. No focal or epileptiform activity is recorded. Sleep is not recorded. Photic stimulation does not produce a driving response. Hyperventilation is not performed. INTERPRETATION: This EEG is abnormal with the patient awake due to diffuse slowing of background electrocortical activity compatible with a moderate generalized encephalopathy. No epileptiform discharges are seen. Clinical correlation is recommended. Trudi Alicia MD CP/MODL /[id number] MTDD
--- NOTE | 2018-06-25 12:55 | NUR ---
WENT BACK TO PT ROOM PT IN BED SLEEPING NO S/S DISTRESS HARD TO AROUSE
--- NOTE | 2018-06-25 13:15 | NUR ---
CALLED TO PT ROOM PT BREATHING HEAVY,ARMSHAKING CRYING -MEDICATED
--- NOTE | 2018-06-25 14:00 | NUR ---
PT SLEEPING NO DISTRESS NOTED UNABLE TO GIVE BP MEDS PT TO SLEEPY
--- NOTE | 2018-06-25 16:21 | Progress Note ---
DATE: 06/25/2018 SUBJECTIVE: I met the patient awake in bed. When I entered the room, she rolled herself, actually she is sleeping. A family member was in the room, who went and tapped the patient lightly, she woke up, sat up. She appeared as if she is drunk. She slumped herself back into bed and refused to answer questions. She is not coughing. No dyspnea at rest. No report of vomiting or diarrhea. OBJECTIVE: VITAL SIGNS: In the past 24 hours, maximum temperature was 99.3 degrees Fahrenheit. She is hemodynamically stable. HEENT: There is no pallor. No icterus. No oropharyngeal lesions. NECK: Supple. CHEST: Symmetric. LUNGS: Clear. HEART: Sounds are regular. There is no new murmur. ABDOMEN: Soft. Bowel sounds are present. EXTREMITIES: There is no acute erythema of her extremities. LABORATORY DATA: On June 24, her creatinine is 0.8. Her white count is 7.4, hemoglobin is 10.7, and platelet count 420. There is no new positive culture or serology report. Report on the CSF, HSV, PCR is still not available. IMPRESSION: She is on acyclovir. We are concerned for aseptic meningitis with an abnormal MRI and reports of recent seizures. We are still awaiting the HSV, PCR. If negative, discontinue acyclovir. Continue other supportive care. MD SWATI Hernandez/TORITOL /[id number]
--- NOTE | 2018-06-25 16:41 | Progress Note ---
DATE: 06/24/2018 SUBJECTIVE: The patient is fairly stable. She is in no acute distress. She is not coughing currently. No dyspnea at rest. No vomiting. No diarrhea. She still continues to have intermittent headaches. No overt medication reaction reported. OBJECTIVE: VITAL SIGNS: In the previous 24 hours, she had temperatures up to 101.6 degrees Fahrenheit. GENERAL: She is hemodynamically stable. HEENT: She has no gross pallor. No obvious icterus. No oropharyngeal lesions. NECK: Supple. CHEST: Symmetric. LUNGS: Clear. HEART: Sounds are regular without a significant murmur. ABDOMEN: Soft. Bowel sounds are present. EXTREMITIES: There is no acute erythema of her extremities. LABORATORY DATA: Her white count 7.4, hemoglobin 10.7, platelet count 420. Differentials on the white count significant only for 11% monocytosis on an automated differential. Also, creatinine is 0.8. There are no new positive cultures reports. HSV, PCR reports are still pending. IMPRESSION: There is concern for aseptic meningitis. HSV-1 and 2, PCR report on the CSF is pending. CSF culture is negative. She had temperature spikes overnight. She is currently afebrile. I suggest continue same management. Followup on the HSV, PCR. Continue other supportive care. MD SWATI Hernandez/MODL /[id number]
[2018-06-25] MEDS: ENOXAPARIN SOD INJ 40 MG/0.4 ML SYR SC SCH (17:00)
--- NOTE | 2018-06-25 19:00 | NUR ---
patient received awake, alert, lying quietly in bed. no c/o pain noted. pm assessment complete. family noted at the bedside. patient/family instructed to call for assistance when needed.
[2018-06-25] MEDS: CLONAZEPAM 0.5 MG TAB PO SCH (20:50)
--- NOTE | 2018-06-25 20:50 | NUR ---
patient medicated with fioricet 1 po for c/o headache 08/03 at this time along with scheduled pm medication. patient able to swallow medication without difficulty. family remains at the bedside.
[2018-06-26] VITALS (8 sets, daily range): BP systolic 121–178; BP diastolic 73–112
--- NOTE | 2018-06-26 | NUR ---
patient appears to be resting quietly. no further c/o pain noted. no seizure activity noted. family remains at the bedside.
[2018-06-26] MEDS: ONDANSETRON HCL INJ 2MG/ML 2ML 2 MG/ML VIAL IV PRN ×3 (01:30→12:37)
[2018-06-26] MEDS: ACETAMINOPHEN 325 MG TAB PO PRN (01:30)
--- NOTE | 2018-06-26 01:30 | NUR ---
patient oob to bsc with assistance. patient voids without difficulty. patient medicated with tylenol 650 mg po for c/o headache 510 and zofran 4 mg ivp for c/o nausea at this time. family remains at the bedside. patient noted shaking at times. patient awake, alert and able to conversate with family. respirations even and unlabored. vital signs remain stable during this episode of shaking.
--- NOTE | 2018-06-26 03:00 | NUR ---
after initiating scheduled 0330 iv zovirax patient c/o pain/burning to right ej site. attempt made x [address] another iv but unable to do so at this time. ER nurse called and will attempt when she gets time. patient made aware of this.
--- NOTE | 2018-06-26 03:30 | NUR ---
Kathryn Rosas [employer] TECHNICIAN at patients bedside attempting to place iv. nurse unable to place iv at this time.
--- NOTE | 2018-06-26 03:52 | NUR ---
call placed to Dr. Bejarano called re: need for iv placement. PICC line ordered at this time.
[2018-06-26] MEDS: SODIUM CHLORIDE 0.9% IV SCH ×3 (04:00→20:28)
[2018-06-26] MEDS: ACYCLOVIR SODIUM IV SCH ×3 (04:00→20:28)
--- NOTE | 2018-06-26 04:00 | NUR ---
Jovan MACKENZIE ( [facility]) here to attempt iv. #20 gauge placed to right forearm at this time. order for picc line d/c'd at this time.
--- NOTE | 2018-06-26 04:00 | NUR ---
iv zovirax continues to infuse to right forearm without difficulty. right ej d/c'd and clean dressing applied to site.
[2018-06-26] MEDS: METOPROLOL TARTRATE 50 MG TAB PO SCH (05:31)
[2018-06-26] MEDS: FAMOTIDINE 20 MG TAB PO SCH ×2 (07:30→16:45)
[2018-06-26] MEDS: LABETALOL HCL 5 MG/ML 20ML VIAL IV PRN (07:30)
[2018-06-26] MEDS ORDERED: MORPHINE SULFATE INJ 4 MG/ML INJ 1ML IV NR (08:00)
[2018-06-26] MEDS ORDERED: MORPHINE SULFATE 5 MG/ML VIAL IV ONE (08:00)
--- NOTE | 2018-06-26 08:10 | NUR ---
CALLED IN PATIENT'S ROOM BY PCT. PATIENT APPEARS UNRESPONSIVE, NAME CALLED, PATIENT OPENED AND CLOSED EYES. SUDDENLY, PATIENT STARTED SCREAMING, CRYING, BREATHING FAST, AND C/O CHEST PAIN. ENCOURAGED TO CALM DOWN AND BREATH SLOWLY. PATIENT CONTINUED TO COMPLAIN OF CHEST PAIN. MD NOTIFIED, NEW ORDERS RECEIVED AND IMPLEMENTED. WILL CLOSELY MONITOR.
[2018-06-26] MEDS: LORAZEPAM INJ 2 MG/ML VIAL IV PRN ×2 (09:41→20:26)
--- NOTE | 2018-06-26 10:36 | NUR ---
PATIENT NOTED WITH SEIZURE, PRN ATIVAN GIVEN ORDERED. IN BED RESTING WITH EYES CLOSED AT THIS TIME, NO RESPIRATORY DISTRESS OBSERVED. FAMILY REFUSED VITAL SIGNS TO BE CHECKED. WILL CONTINUE TO MONITOR.
[2018-06-26] MEDS: LABETALOL HCL 100 MG TAB PO SCH ×2 (12:39→20:25)
[2018-06-26] MEDS: LEVETIRACETAM 500 MG TAB PO SCH ×2 (12:40→17:31)
[2018-06-26] MEDS: CLONAZEPAM 0.5 MG TAB PO SCH ×2 (12:40→17:31)
--- NOTE | 2018-06-26 12:57 | NUR ---
PATIENT UP AT THIS TIME. V/S CHECKED [id number]/112 AND 99% ON 2L N/C. ALL AM MEDICATIONS ADMINISTERED. C/O NAUSEA, PRN ZOFRAN GIVEN. SITTING UP IN BED WITH THE HELP OF FAMILY MEMBERS DUE TO INABILITY TO SIT BY SELF, TRYING TO EAT LUNCH. PATIENT HAS EPISODES OF PASSING OUT ON AND OFF AND A HISTORY OF BIPOLAR PER FAMILY. MD NOTIFIED, NEW ORDER RECEIVED.FAMILY AT BED SIDE, CALL LIGHT AT REACH. INSTRUCTED TO CALL FOR ASSISTANCE NEEDED.
--- NOTE | 2018-06-26 14:57 | NUR ---
SPOKE WITH NEUROLOGIST REGARDING PATIENT CONTINUOUSLY PASSING OUT ON AND OFF, NO NEW ORDER RECEIVED.
--- NOTE | 2018-06-26 16:24 | NUR ---
PATIENT IN BED RESTING WITH NO RESPIRATORY DISTRESS. BED SIDE PICC LINE PLACEMENT COMPLETED, PATIENT TOLERATED PROCEDURE WELL. BED IN LOWER POSITION, CALL LIGHT AT REACH. SIDE RAIL REMAINED PADDED FOR SEIZURE PRECAUTION.
--- NOTE | 2018-06-26 16:32 | NUR ---
Follow-up Note RD Recommendation for Physician: -Diet per MD discretion Plan of Care: RD following, monitoring for adequacy and tolerance Nutrition reason for involvement: Follow up Primary Diagnose(s):Seizure Ht:67 in Wt:140lbs BMI: 21.9 kg/m2 IBW:135lbs RD Assessment: (06/26/2018) Visited pt in the room. Pt has been continuously passing out on and off. Family has only been able to feed her soft foods and liquids. Some foods would stuck in her mouth if it is too hard as pt was passing out every few minutes. No aspiration episode noted at this time. No vomiting episode reported. Zofran was given for nausea. Neurologist following. Will continue to monitor and follow. (06/20/18) Initial encounter with patient. Pt has had 1 episode of nausea/vomiting. Pt Bit her tongue during a seizure and it is her tongue is swollen and causes some difficulty eating. 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 Pt was eating lunch at time of visit. No wt changes. Current Diet: Regular diet Malnutrition Evaluation (06/20) The patient does not meet criteria for a specified degree of malnutrition at this time. Will re-evaluate at follow-up as appropriate. Diet Education Needs Assessment: Diet education not indicated. Nutrition Care Level: Low Francia Zuñiga, MS, RD, LD
--- NOTE | 2018-06-26 16:35 | Diagnostic Imaging Report ---
EXAMINATION: CHEST XRAY LINE PLACEMENT INDICATION: Status post PICC. COMPARISON: Chest radiograph 06/19/2018. FINDINGS: TUBES and LINES: Interval placement of a right-sided PICC with terminates at the expected location of the mid SVC. LUNGS: Lungs are moderately inflated. There are increasing patchy opacities in the bilateral lower lung zones. PLEURA: No pleural effusion or pneumothorax. HEART AND MEDIASTINUM: The cardiomediastinal silhouette is unremarkable. BONES AND SOFT TISSUES: No acute osseous abnormality. UPPER ABDOMEN: No free air under the diaphragm. IMPRESSION: Right-sided PICC terminates in the expected location of the mid SVC. No evidence of pneumothorax. Increasing opacities in the bilateral lower lungs may reflect pneumonia in the appropriate clinical setting. Suggest follow-up chest radiograph in 6-8 weeks to assess for resolution. Signed by: Dr. Natalia Pedraza MD on 06/26/2018 4:32 PM
[2018-06-26] MEDS: ENOXAPARIN SOD INJ 40 MG/0.4 ML SYR SC SCH (17:31)
--- NOTE | 2018-06-26 19:11 | NUR ---
PT IS RESTING IN BED WITH FAMILY AT BEDSIDE. NO RESPIRATORY DISTRESS NOTED. BED IN THE LOWEST POSITION, LOCKED, BED ALARM ON, AND CALL LIGHT WITHIN REACH. SEIZURE PRECAUTION IN PLACE WITH BED PADDED. WILL CONTINUE TO MONITOR.
[2018-06-26] MEDS: ACETAMIN/BUTALBITAL/CAFFEINE TAB PO PRN (20:25)
[2018-06-27] VITALS (7 sets, daily range): BP systolic 123–162; BP diastolic 72–111
[2018-06-27] MEDS: ACETAMINOPHEN 325 MG TAB PO PRN ×2 (01:22→20:30)
[2018-06-27] MEDS: ACYCLOVIR SODIUM IV SCH ×2 (03:08→11:30)
[2018-06-27] MEDS: SODIUM CHLORIDE 0.9% IV SCH ×2 (03:08→11:30)
--- NOTE | 2018-06-27 07:15 | NUR ---
PATIENT IN BED TALKING TO FAMILY MEMBERS, NO DISTRESS NOTED. DENIED PAIN AT THIS TIME. BED IN LOWER POSITION, CALL LIGHT AT REACH.
[2018-06-27] MEDS: FAMOTIDINE 20 MG TAB PO SCH ×2 (07:30→16:52)
[2018-06-27] MEDS ORDERED: LORAZEPAM INJ 2 MG/ML VIAL IV PRN (08:15)
[2018-06-27] MEDS: LEVETIRACETAM 500 MG TAB PO SCH ×2 (09:14→17:33)
[2018-06-27] MEDS: CLONAZEPAM 0.5 MG TAB PO SCH ×2 (09:14→17:33)
[2018-06-27] MEDS: LABETALOL HCL 100 MG TAB PO SCH (09:15)
[2018-06-27] MEDS: ONDANSETRON HCL INJ 2MG/ML 2ML 2 MG/ML VIAL IV PRN (10:50)
--- NOTE | 2018-06-27 11:19 | NUR ---
PATIENT OBSERVED IN BED CRYING, EMOTIONAL SUPPORT PROVIDED. REQUESTED AND RECEIVED A ICE CREAM. BED IN LOWER POSITION, CALL LIGHT AT REACH.
[2018-06-27] MEDS: ACETAMIN/BUTALBITAL/CAFFEINE TAB PO PRN (12:20)
--- NOTE | 2018-06-27 15:46 | NUR ---
PATIENT ASSISTED WITH SHOWER, LINENS CHANGED. BACK IN BED RESTING WITH NO RESPIRATORY DISTRESS. CALL LIGHT AT REACH.
[2018-06-27] MEDS: ENOXAPARIN SOD INJ 40 MG/0.4 ML SYR SC SCH (17:33)
[2018-06-27] MEDS ORDERED: KEPPRA500 MG PO (18:55)
[2018-06-27] MEDS ORDERED: LABETALOL HCL100 MG PO (18:55)
[2018-06-27] MEDS ORDERED: FAMOTIDINE20 MG PO (18:55)
--- NOTE | 2018-06-27 19:00 | NUR ---
Received patient, patient in bed, no acute distress noted.
--- NOTE | 2018-06-27 19:53 | Progress Note ---
DATE: 06/26/2018 SUBJECTIVE: I met the patient asleep. There is no report of seizures. No report of nausea, vomiting, or diarrhea. No respiratory or genitourinary complaints. OBJECTIVE: VITAL SIGNS: In previous 24 hours, maximum temperature was up to 98.8 degrees Fahrenheit. She is hemodynamically stable. HEENT: There is no pallor. No icterus. No oropharyngeal lesions. NECK: Supple. CHEST: Symmetric. LUNGS: Clear. HEART: Sounds are regular. There is no new murmur. ABDOMEN: Soft. Bowel sounds are present. EXTREMITIES: No acute erythema of extremities. LABORATORY DATA: Her white count on June 24, 7.4, hemoglobin 10.7, and platelet count 420. Serum creatinine on June 24, 0.8. We are still awaiting the HSV, PCR. IMPRESSION: She is on acyclovir. She had seizures. She has abnormal MRI. CSF showed few WBCs, but in light of the abnormal MRI and seizures we are keeping her on acyclovir until the HSV, PCR and CSF is available. Continue current management. MD SWATI Hernandez/MODL /[id number]
--- NOTE | 2018-06-27 19:58 | Progress Note ---
DATE: 06/27/2018 SUBJECTIVE: The patient is alert family is at the bedside. She is talking and laughing a loud. She has no evidence of any neurologic deficit. No respiratory, gastrointestinal, or genitourinary complaints. No seizures reported. OBJECTIVE: VITAL SIGNS: Maximum temperature in the past 24 hours was up to 97.8 degrees Fahrenheit. GENERAL: She is hemodynamically stable. HEENT: She has no pallor. No icterus. No oropharyngeal lesions. NECK: Supple. CHEST: Symmetric. LUNGS: Clear. HEART: Sounds are regular without a significant murmur. ABDOMEN: Soft. Nontender. Bowel sounds are normal. EXTREMITIES: There is no acute erythema of her extremities. LABORATORY DATA: Her creatinine 0.8 on June 24. Her white count 7.4, hemoglobin 10.7, platelet count 420. Her HSV PCR from June 20 for both HSV-1 and 2 are negative. There are no other positive serologies. IMPRESSION: She had an abnormal MRI. She had seizures that have resolved. Her HSV PCR is negative. CSF culture is negative. I suggest discontinue all antimicrobials. If the patient is afebrile and hemodynamically stable from an Infectious Disease point, she can be discharged to continue and follow up on an outpatient basis. I have discussed the test reports and plans with the patient and her family at bedside along with the nursing care of the patient. I will discuss the patient with Dr. Bejarano. MD SWATI Hernandez/ESMER /[id number]
--- NOTE | 2018-06-27 20:27 | NUR ---
Discharge summary Principal Dx: New onset seizure Aseptic meningitis Hypokalemia UTI Acute transaminitis Secondary Dx: Current smoker PLAN LP shows markedly elevated lymphocytes, supportive of Aseptic Meningitis- droplet precautions and acyclovir R/O meningitis- LP done. Brain imaging negative; Continue keppra Recheck K ABx for UTI; f/u SCD dIspo:scd; f/u neuro eval and EEG; f/u LP 06/21 f/u labs; MRI supportive. f/u recs. 06/22 doing much better 06/23 check K and LFTs. f/u studies; Headache effectively treated with fioricet. 06/24 fevers- check labs; control BP f/u HSV testing 06/25 check K 06/26 HSV negative; d/c acyclovir; home; d/c home d/c >35mins stable f/u pcp 1 week and 1 week Wan Bejarano MD, PhD.
== END 2018-06-27 20:40 | disposition home or self-care (01) | DRG 98 ==
LOC: ER 22:58 → ERHOLD 06-20 02:11 → IMCU 06-20 03:30 → OBSVTOIN 06-21 13:25 → MED/SURG3 06-23 12:01
PROVIDERS: ADMIT Internal Medicine; ATTEND Internal Medicine
PROC: 009U3ZX Drainage of Spinal Canal, Percutaneous Approach, Diagnostic (ICD-10-PCS; principal; 2018-06-20)
PROC: 02HV33Z Insertion of Infusion Device into Superior Vena Cava, Percutaneous Approach (ICD-10-PCS; 2018-06-26)
PROC: B548ZZA Ultrasonography of Superior Vena Cava, Guidance (ICD-10-PCS; 2018-06-26)
DX: G03.0 Nonpyogenic meningitis (principal); N39.0 Urinary tract infection, site not specified; R56.9 Unspecified convulsions; E87.6 Hypokalemia; R74.0 Nonspecific elevation of levels of transaminase and lactic acid dehydrogenase [LDH]; F17.210 Nicotine dependence, cigarettes, uncomplicated; Z82.49 Family history of ischemic heart disease and other diseases of the circulatory system; R51 Headache; F41.9 Anxiety disorder, unspecified
CPT/HCPCS: 36415; 36569; 70450; 70551; 71045; 71046; 74470; 80048; 80053; 80076; 80307; 81001; 81025; 82164; 82945; 82948; 84132; 84165; 84484; 85007; 85025; 85027; 85610; 85651; 86039; 86140; 86235; 86431; 86592; 86789; 87070; 87116; 87205; 87206; 87390; 87529; 89051; 93005; 95812; 95819; 96361; 96374; 99284; G0378; G0433; G0435; J1650; J2060; J2270; J2405; J2550; J3486; J7050